=== PATIENT | female | born 1980 | race Caucasian/White ===

== ENCOUNTER 2020-09-28 04:34 | Inpatient (IN) ==
[2020-09-20 09:49] LABS: Basophils # (Auto) 0.03 K/mcL (0.00-0.20); Basophils % (Auto) 0.7 % (0.0-2.0); Eosinophils # (Auto) 0.09 K/mcL (0.00-0.70); Eosinophils % (Auto) 2.2 % (0.0-7.0); Hematocrit 39.6 % (36.0-48.0); Lymphocytes # (Auto) 0.93 K/mcL (1.50-4.80); Lymphocytes % (Auto) 22.9 % (15.0-49.0); Mean Cell Volume 86.8 fL (80.0-100.0); Mean Corpuscular HGB Conc 32.8 g/dL (31.0-36.0); Mean Platelet Volume 10.2 fL (7.4-10.4); Monocytes # (Auto) 0.33 K/mcL (0.10-0.90); Monocytes % (Auto) 8.1 % (1.0-12.0); Neutrophils % (Auto) 66.1 % (38.0-78.0); Platelet Count 260 K/mcL (140-440); RBC 4.56 M/mcL (4.00-5.20); Red Cell Distribution Width 12.6 % (11.5-14.5); WBC 4.1 K/mcL (4.5-11.0)
[2020-09-20 09:55] LABS: Partial Thromboplastin Time 30.4 sec (20.0-37.0); Prothrombin Time 13.7 sec (11.9-14.5)
--- NOTE | 2020-09-20 09:58 | XRay Report ---
CLINICAL INFORMATION: Preop COMPARISON: 09/02/2018 TECHNIQUE: PA and Lateral views FINDINGS: The heart size, mediastinum and pulmonary vessels are unremarkable. The lungs are clear. There are no effusions. The bones and soft tissues are within normal limits. IMPRESSION: Normal chest. Interpreted and Authenticated by: Pedro Alcantar 09/20/20
[2020-09-20 10:11] LABS: ALT/SGPT 26 U/L (<40); AST/SGOT 23 U/L (<32); Albumin 4.3 gm/dL (3.2-5.2); Alkaline Phosphatase 49 U/L (39-117); Bilirubin,Total 0.3 mg/dL (0.1-1.0); Blood Urea Nitrogen 14 mg/dL (6-20); Calcium 8.7 mg/dL (8.6-10.4); Carbon Dioxide 26 mmol/L (22-30); Chloride 105 mmol/L (96-108); Globulin 2.2 gm/dL (2.2-3.7); Glomerular Filtration Rate 93; Glucose 89 mg/dL (70-105)
[2020-09-22 15:50] LABS: HCG,Serum Negative
[2020-09-28] MEDS ORDERED: SCOPOLAMINE 1 PATCH PATCH TOPICAL PRN (05:00)
[2020-09-28] MEDS ORDERED: IPRATROPIUM/ALBUTEROL 3 ML AMPUL.NEB NEB PRN ×2 (05:00→09:13)
[2020-09-28] MEDS ORDERED: LEVOFLOXACIN 750 MG/150 ML BAG IV SCH (06:00)
[2020-09-28] MEDS ORDERED: CLINDAMYCIN 300 MG in DEXTROSE 5% IN WATER 50 ML IV SCH (07:30)
[2020-09-28] MEDS ORDERED: LIDOCAINE HCL/PF 100 MG/5 ML SYRINGE IV ONE (07:40)
[2020-09-28] MEDS ORDERED: ePHEDrine 50 MG/ML AMPUL IV ONE (07:40)
[2020-09-28] MEDS ORDERED: ROCURONIUM 10 MG/ML ML IV ONE (07:40)
[2020-09-28] MEDS ORDERED: DEXAMETHASONE 10 MG/ML VIAL ONE (07:40)
[2020-09-28] MEDS ORDERED: SUGAMMADEX SODIUM 200 MG/2 ML VIAL IV ONE (07:40)
[2020-09-28] MEDS ORDERED: PROPOFOL 200 MG/20 ML VIAL IV ONE (07:40)
[2020-09-28] MEDS ORDERED: MAGNESIUM SULFATE 2 GM/50 ML BAG IV ONE (07:40)
[2020-09-28] MEDS ORDERED: fentaNYL 250 MCG/5 ML VIAL IV ONE (07:40)
[2020-09-28] MEDS ORDERED: ONDANSETRON 4 MG/2 ML VIAL ONE (07:40)
[2020-09-28] MEDS ORDERED: MIDAZOLAM 5 MG/5 ML VIAL ONE (07:40)
[2020-09-28] MEDS ORDERED: GLYCOPYRROLATE 0.2 MG/ML VIAL IV ONE (07:40)
[2020-09-28] MEDS ORDERED: diphenhydrAMINE 50 MG/ML VIAL ONE (07:40)
[2020-09-28] MEDS ORDERED: KETOROLAC 30 MG/ML VIAL ONE (07:40)
[2020-09-28] MEDS ORDERED: METHOCARBAMOL 1,000 MG/10 ML VIAL IV PRN (09:13)
[2020-09-28] MEDS ORDERED: fentaNYL 100 MCG/2 ML VIAL IV PRN (09:13)
[2020-09-28] MEDS ORDERED: diphenhydrAMINE 50 MG/ML VIAL IV PRN (09:13)
[2020-09-28] MEDS ORDERED: METOPROLOL TARTRATE 5 MG/5 ML VIAL IV PRN (09:13)
[2020-09-28] MEDS ORDERED: HYDROmorphone 0.5 MG/0.5 ML SYRINGE IV PRN ×2 (09:13→10:20)
[2020-09-28] MEDS ORDERED: MEPERIDINE 50 MG/ML INJECTION IM PRN (09:13)
[2020-09-28] MEDS ORDERED: FLUMAZENIL 0.1 MG/ML ML IV PRN (09:13)
[2020-09-28] MEDS ORDERED: ACETAMINOPHEN 1,000 MG/100 ML BAG IV ONE (09:13)
[2020-09-28] MEDS ORDERED: NALOXONE HCL 0.4 MG/ML VIAL IV PRN (09:13)
[2020-09-28] MEDS ORDERED: ATROPINE SULFATE 0.4 MG/ML VIAL IV PRN (09:13)
[2020-09-28] MEDS ORDERED: PROMETHAZINE 25 MG/ML VIAL IM PRN (09:13)
[2020-09-28] MEDS ORDERED: MEPERIDINE 25 MG/ML SYRINGE IV PRN (09:13)
[2020-09-28] MEDS ORDERED: PROMETHAZINE 25 MG/ML VIAL IV PRN ×2 (09:13→10:20)
[2020-09-28] MEDS ORDERED: ONDANSETRON 4 MG/2 ML VIAL IV PRN (09:13)
[2020-09-28] MEDS ORDERED: ePHEDrine 50 MG/ML AMPUL IV PRN (09:13)
[2020-09-28] MEDS ORDERED: LACTATED RINGERS 1,000 ML IV SCH (09:15)
--- NOTE | 2020-09-28 10:20 | Brief Operative Note ---
Brief Operative Note Date of procedure: 09/28/20 Pre-op diagnosis: CHRONIC PELVIC PAIN;DFUB;LEIOMYOMA UTERI Post-op diagnosis: other (CHRONIC PELVIC ADHESIONS;UTERINE FIBROIDS) Procedure: AMANUEL AND LSO Grafts/Implants: No Anesthesia: GETA Findings: EXTENSIVE ADHESIONS OF OMENTUM; RIGHT TUBE AND OVARY;MULTIPLE LOOPS OF SMALL BOWEL Complications: none Surgeon: Chastity Cabrera Estimated blood loss (cc): 100 Specimens Removed/Pathology: other (UTERUS AND RIGHT TUBE AND OVARY) Condition: stable Disposition: PACU
[2020-09-28] MEDS ORDERED: oxyCODONE HCL 5 MG TABLET PO PRN (10:25)
[2020-09-28] MEDS ORDERED: 0.9 % SODIUM CHLORIDE 10 ML SYRINGE IV ONE (10:31)
[2020-09-28] MEDS ORDERED: hydrOXYzine 25 MG TABLET PO PRN (10:54)
[2020-09-28] MEDS: 0.9 % SODIUM CHLORIDE 1,000 ML IV SCH (13:28)
[2020-09-28] MEDS: CLINDAMYCIN 300 MG in DEXTROSE 5% IN WATER 50 ML IV SCH ×2 (13:30→18:02)
[2020-09-28] MEDS: METOCLOPRAMIDE 10 MG/2 ML VIAL IV SCH ×2 (13:33→18:00)
[2020-09-28] MEDS: ACETAMINOPHEN 1,000 MG/100 ML BAG IV SCH ×2 (15:54→21:37)
[2020-09-28] MEDS: busPIRone 5 MG TABLET PO SCH (21:38)
[2020-09-29] MEDS: CLINDAMYCIN 300 MG in DEXTROSE 5% IN WATER 50 ML IV SCH ×3 (00:05→12:26)
[2020-09-29] MEDS: 0.9 % SODIUM CHLORIDE 1,000 ML IV SCH ×2 (01:05→09:57)
[2020-09-29] MEDS: ACETAMINOPHEN 1,000 MG/100 ML BAG IV SCH ×2 (04:16→09:56)
[2020-09-29] MEDS: METOCLOPRAMIDE 10 MG/2 ML VIAL IV SCH ×3 (05:56→12:26)
[2020-09-29 06:38] LABS: Basophils # (Auto) 0.01 K/mcL (0.00-0.20); Basophils % (Auto) 0.1 % (0.0-2.0); Eosinophils # (Auto) 0.01 K/mcL (0.00-0.70); Eosinophils % (Auto) 0.1 % (0.0-7.0); Hematocrit 32.5 % (36.0-48.0); Hemoglobin 10.6 g/dL (12.0-15.0); Lymphocytes # (Auto) 1.15 K/mcL (1.50-4.80); Lymphocytes % (Auto) 11.1 % (15.0-49.0); Mean Cell Volume 88.3 fL (80.0-100.0); Mean Corpuscular HGB Conc 32.6 g/dL (31.0-36.0); Mean Platelet Volume 10.7 fL (7.4-10.4); Monocytes # (Auto) 0.88 K/mcL (0.10-0.90); Monocytes % (Auto) 8.5 % (1.0-12.0); Neutrophils % (Auto) 80.2 % (38.0-78.0); Platelet Count 216 K/mcL (140-440); RBC 3.68 M/mcL (4.00-5.20); Red Cell Distribution Width 12.4 % (11.5-14.5); WBC 10.4 K/mcL (4.5-11.0)
[2020-09-29 07:18] LABS: ALT/SGPT 10 U/L (<40); AST/SGOT 13 U/L (<32); Albumin 3.1 gm/dL (3.2-5.2); Albumin/Globulin Ratio 1.5 (1.0-2.3); Alkaline Phosphatase 39 U/L (39-117); Bilirubin,Direct < 0.2 mg/dL (<0.3); Bilirubin,Total 0.4 mg/dL (0.1-1.0); Blood Urea Nitrogen 8 mg/dL (6-20); Calcium 7.8 mg/dL (8.6-10.4); Carbon Dioxide 26 mmol/L (22-30); Chloride 106 mmol/L (96-108); Glomerular Filtration Rate 110; Glucose 101 mg/dL (70-105); Lactate Dehydrogenase 160 U/L (135-225); Phosphorous 3.1 mg/dL (2.5-4.5); Triglycerides 87 mg/dL (<150); Uric Acid 3.4 mg/dL (2.5-8.0)
[2020-09-29] MEDS: busPIRone 5 MG TABLET PO SCH (09:57)
--- NOTE | 2020-09-29 12:55 | Discharge Summary ---
Discharge Provider Provider Patient information: Note initiated : 09/29/20 at 12:50 pm Service Date, if different from initiated Date: [] Patient: Ariella Stevenson 40 y/o F admitted on 09/28/20 for Abdominal Hysterectomy and Right Salpingo. Chief Complaint: [] Date of admission: 09/28/20 04:34 Discharge date: 09/29/20 Primary care physician: Gwen Carney PA-C Admitting clinician: Chastity Cabrera Attending physician on admission: Chastity Cabrera Attending physician on discharge: Chastity Cabrera Discharging clinician: Chastity Cabrera COURSE Hospital Course Hospital course: 40-year-old female who is status post AMANUEL and right salpingo- oophorectomy for acute severe right-sided pelvic pain and dysmenorrhea. She was found to have extensive severe pelvic adhesions involving small bowel tube ovary and uterus. The tubo-ovarian complex was tightly encased in a phlegmon- like entity comprised of small bowel loops, small bowel mesentery, right tube and ovary and uterus. Extensive adhesiolysis was done and hysterectomy with removal of the right tubo-ovarian complex was carried out. She has done well overnight and is stable for discharge home Discharge diagnosis: Chronic pelvic pain Secondary discharge diagnosis: Severe dysfunctional uterine bleeding Phlegmon right tube and ovary Reason for admission: Postoperative abdominal hysterectomy with salpingo- oophorectomy Procedures: Total abdominal hysterectomy with right salpingo-oophorectomy Pertinent studies/significant findings: None Complications: None Time Spent with Patient Time attestation: Total time spent providing and/or coordinating discharge services: Physical Examination Vital Signs Vital signs: Temp Pulse Resp BP Pulse Ox 97.7 F 82 16 105/62 100 09/29/20 12:00 09/29/20 12:00 09/29/20 12:00 09/29/20 12:00 09/29/20 12:00 General physical appearance General physical exam: well developed, well nourished, moderate distress and moderate pain Eyes Eye exam: PERRL and normal ocular movement ENT ENT exam: normal mucosa and no hearing loss Head Head exam IM: Present atraumatic, normal inspection and normocephalic Neck Neck exam: no masses, no bruits, trachea midline and no lymphadenopathy Cardiovascular Cardiovascular exam IM: Present normal rate and rhythm, RRR, +S1 and +S2; Absent gallop and JVD Respiratory Respiratory exam: normal expansion, normal respiratory effort and clear to auscultation Abdomen Abdomen: Present tender (Moderate incisional tenderness) Integumentary Integumentary: Present no rash, no growths and no abnormal pigmentation Neurologic Neurologic: Present normal coordination and normal sensation Musculoskeletal Musculoskeletal: Present normal gait and normal posture Psychiatric Psychiatric: Present oriented to time, oriented to person, oriented to place, speech is normal and memory intact Discharge Plan Patient/Caregiver Discharge Instructions Activity: increase activity as tolerated Diet: Regular Diet Prescriptions: New oxycodone-acetaminophen [Endocet] 10-325 mg Tablet 1 tab PO Q4H PRN (Reason: Pain) Qty: 40 RF: 0 clindamycin HCl 300 mg capsule 300 mg PO Q8H Qty: 30 RF: 0 Continued buspirone 5 mg Tablet 5 mg PO BID RF: 0 hydroxyzine pamoate 25 mg Capsule 50 mg PO PRN PRN (Reason: Anxiety) RF: 0 Follow Up Plan Follow up with: Chastity Cabrera MD [Physician] - 10/13/20 1:00 pm Patient Disposition: Home, Self-Care Prognosis: Good Rehab Potential: Good I certify that the patient requires SNF services: No Overall status at discharge: patient is progressing back to baseline Discharge Orders: Discharge Order (Routine); Ordered 09/29/20 Ordered By: Chastity Cabrera Pending Pending Pending: Resuscitation Status Full Code Diet Full Liquid Diet Start SatSep 28 1023 Buspirone HCl (Buspirone 5 Mg Tablet) 5 mg PO BID [facility] Last Admin: 09/29/20 09:57 Dose: 5 mg Documented by: Admin: 09/28/20 21:38 Dose: 5 mg Documented by: PARAG Sodium Chloride (Sodium Chloride 0.9%) 1,000 mls @ 100 mls/hr IV .Q10H [facility] Last Admin: 09/29/20 09:57 Dose: 100 mls/hr Documented by: Infusion: 09/29/20 09:57 Dose: 100 mls/hr Documented by: Admin: 09/29/20 01:05 Dose: 100 mls/hr Documented by: Infusion: 09/28/20 23:28 Dose: 100 mls/hr Documented by: Admin: 09/28/20 13:28 Dose: 100 mls/hr Documented by: ARPITA Acetaminophen (Ofirmev) 1,000 mg in 100 mls @ 200 mls/hr IV Q6H [facility]IE Stop: 09/29/20 15:59 Last Admin: 09/29/20 09:56 Dose: 200 mls/hr Documented by: Infusion: 09/29/20 04:46 Dose: 200 mls/hr Documented by: Admin: 09/29/20 04:16 Dose: 200 mls/hr Documented by: Infusion: 09/28/20 22:07 Dose: 200 mls/hr Documented by: Admin: 09/28/20 21:37 Dose: 200 mls/hr Documented by: Infusion: 09/28/20 16:25 Dose: 0 mls/hr Documented by: JOSE J Admin: 09/28/20 15:54 Dose: 200 mls/hr Documented by: JOSE J Clindamycin Phosphate 300 mg/ (Dextrose) 52 mls @ 100 mls/hr IV Q6H ANNE MARIE; Protocol Last Admin: 09/29/20 12:26 Dose: 100 mls/hr Documented by: Infusion: 09/29/20 10:23 Dose: 100 mls/hr Documented by: Admin: 09/29/20 05:56 Dose: 100 mls/hr Documented by: Infusion: 09/29/20 00:37 Dose: 100 mls/hr Documented by: Admin: 09/29/20 00:05 Dose: 100 mls/hr Documented by: Infusion: 09/28/20 18:35 Dose: 0 mls/hr Documented by: JOSE J Admin: 09/28/20 18:02 Dose: 100 mls/hr Documented by: JOSE J Infusion: 09/28/20 14:02 Dose: 0 mls/hr Documented by: Admin: 09/28/20 13:30 Dose: 100 mls/hr Documented by: ARPITA Metoclopramide HCl (Metoclopramide 10 Mg/2 Ml Vial) 10 mg IV Q6 [facility] MARIE Last Admin: 09/29/20 12:26 Dose: 10 mg Documented by: Admin: 09/29/20 05:56 Dose: 10 mg Documented by: Admin: 09/29/20 00:00 Dose: 10 mg Documented by: Admin: 09/28/20 18:00 Dose: 10 mg Documented by: JOSE J Admin: 09/28/20 13:33 Dose: 10 mg Documented by: ARPITA Shift Summary 09/29/20 04:21 Shift Summary by Gabi Campbell REGISTRATION STATUS: Inpatient DIAGNOSIS: Abdominal Hysterectomy and Right Salpingo Oophorectomy BRIEF HISTORY: Chronic Pelvic Pain, Uterine Fibroids, Depression, Anxiety ORIENTATION: Alert and Oriented Times Four TRANSFER/AMBULATION: 1 SBA TOILETING: Dick Catheter Insitu DIET: Full Liquid IV: NS at 100 ml/hr, Cleocin, Reglan, APAP PAIN: Scheduled APAP IV, Diluadid IV PRN None Given, Roxicodone PRN None Given SKIN/TURN: Lower Midline Abdominal Incision with [place]/Tegaderm Dressing Changed, Repositions Self VS: VSS, RA DISCHARGE PLANS: Patient lives at home with her 12 year old son, plan is to discharge to home with family to assist with caregiver needs after 3 day stay per MD report. Will update shift summary report at bedside with patient and oncoming RN. Initialized on 09/29/20 04:21 - END OF NOTE
--- NOTE | 2020-09-29 14:05 | Surgical Pathology Report ---
Histology Microscopic Diagnosis Specimen A- UTERUS, CERVIX, RIGHT OVARY AND FALLOPIAN TUBE, HYSTERECTOMY WITH RIGHT SALPINGO-OOPHORECTOMY: --- CERVIX: -- ACUTE CHRONIC CERVICITIS, MILD. -- NO DYSPLASIA OR MALIGNANCY IDENTIFIED. --- ENDOMETRIUM: -- PROLIFERATIVE ENDOMETRIUM. -- NO HYPERPLASIA OR MALIGNANCY IDENTIFIED. --- MYOMETRIUM: -- NO DIAGNOSTIC ALTERATIONS. --- OVARY, RIGHT: -- INVOLUTING CORPUS LUTEAL CYST. -- ENDOSALPINGOSIS. --- FALLOPIAN TUBE, RIGHT: -- NO DIAGNOSTIC ALTERATIONS. (DMT) Gross Description Received in formalin designated uterus with right ovary and fallopian tube, is a hysterectomy specimen consisting of a uterine body with attached cervix and attached right ovary and fallopian tube that is 119 grams and is 9.5 x 4.9 x 3.8 cm with an ectocervix that is 3.6 x 3.8 cm with an external cervical os that is up 1.2 cm. The serosa is smooth and glistening with no subserosal nodules or lesions present. A portion of fat is connected to part of the uterine body that extends over to the right fallopian tube. The endometrium is pink lincoln to red-lincoln and smooth and up to 0.2 cm. The myometrium is pink lincoln and striated and up to 1.7 cm. No fibroids are located within the uterine specimen. The right ovary is 2.9 x 2.5 x 1.4 cm. Sectioning reveals an approximately 1.4 x 0.7 x 0.6 cm fluid-filled area with pink fluid present. The right fallopian tube is 6.5 cm in length and up to 0.7 cm in diameter. Within the specimen container there is a 6.5 x 1.8 x 1.1 cm portion of yellow-lincoln adipose tissue. Resident Service Coordinator portions are submitted in six cassettes: A1 - anterior portions of the cervix along with a cul-de-sac shaving; A2 - posterior portions of the cervix; A3 - anterior potions of the endomyometrium; A4 - posterior portions of the endomyometrium; A5 - cross section of right ovary; A6 - compliance representative dealer sections of the right fallopian tube. (KGW:adj) Electronically Signed Shane Mo MD, FCAP Electronically Signed 09/29/2020 14:04
--- NOTE | 2020-10-10 08:50 | Operative Note ---
DATE OF OPERATION: 09/28/2020 PREOPERATIVE DIAGNOSES: Chronic pelvic pain, dysfunctional uterine bleeding, leiomyomata uteri. POSTOPERATIVE DIAGNOSES: Chronic pelvic adhesions, uterine fibroids. PROCEDURE: Total abdominal hysterectomy with left salpingo-oophorectomy. SURGEON: Chastity Cabrera M.D. FINDINGS: Extensive adhesions of the omentum, right tube, ovary, and multiple loops of small bowel, primarily to the posterior aspect and to the right adnexa. DESCRIPTION OF PROCEDURE: Under general anesthesia, the patient's abdomen was prepped and draped in a sterile field. Perineal prep was also done. The old scar in the lower midline was excised. Incision then extended through the fascia into the peritoneum. There were extensive adhesions of omentum to the anterior peritoneum. These were taken down using sharp dissection. The omentum was also densely adherent to the deep pelvis and involved multiple loops of small bowel. Most of this was adherent to the left tube and ovary, which was severely scarred. The adhesions were taken down using primarily sharp dissection. The dense adhesions of the omentum to the right tubo-ovarian complex were taken down first. The abdomen was then packed off and a Paige retractor was placed. Multiple loops of small bowel that were densely adherent to the lower uterine segment were sharply incised and the bowel was inspected. No enterotomies were made. The right tubo-ovarian complex was clamped with a large Tara clamp. This was done x2. It was divided and the vessels and round ligament were suture ligated using 2-0 Vicryl. On the opposite side, the infundibulopelvic ligament was clamped at its junction with the uterus. It was divided and tied with a suture ligature of 0 Vicryl. The uterus was grasped with a tenaculum and placed on stretch. The bladder flap was developed using primarily blunt dissection. The uterine vessels were serially clamped on each side, divided and controlled with suture ligatures of 0 Vicryl. This was continued down to the cervix on each side. A round Rubi clamp was used to clamp across the apex of the vagina. These were controlled bilaterally with suture ligatures of 0 Vicryl. The uterus was then fully excised. The vaginal cuff was oversewn using running locking 2-0 Vicryl. The round ligament on each side was then sutured to the vaginal cuff. Hemostasis was achieved. The pelvis was reperitonealized using 2-0 Vicryl. Irrigation was carried out. The abdomen was inspected. Sponge, needle, and instrument counts were verified as correct. Peritoneum was closed with running 2-0 Vicryl. The fascia and muscle were closed with 2-0 Prolene. Subcutaneous tissue was closed with running 2-0 Monocryl. Skin was closed with traci. The patient tolerated the procedure well. She was awakened, transferred to a bed, and taken to the postanesthetic care unit in stable, satisfactory condition. LCS:danay Job ID: [id number] Doc ID: [id number] Chastity Cabrera M.D.
== END 2020-09-29 14:25 | disposition home or self-care (01) | DRG 743 ==
LOC: MEDSUR 04:34
PROVIDERS: ADMIT Family Medicine Adult Medicine; ATTEND Family Medicine Adult Medicine